=== PATIENT | male | born 1950 | race Caucasian/White ===

== ENCOUNTER 2018-04-13 06:00 | Day surgery (SDC) | payer BC ==
[~2018-04-13 06:00] MED LIST: Lactated Ringers 1,000 ML IV SCH
[2018-04-13] MEDS ORDERED: DIPRIVAN 200 MG/20 ML IV ONE (06:01)
[2018-04-13] MEDS ORDERED: SUBLIMAZE 100 MCG/2 ML IV ONE (06:01)
[2018-04-13] MEDS ORDERED: Versed 2 MG/2 ML Injection IV ONE (06:01)
[2018-04-13] MEDS ORDERED: Lactated Ringers 1,000 ML IV ONE (06:58)
--- NOTE | 2018-04-13 08:54 | OP ---
SURGERY DATE/TIME: 04/13/201825 PREOPERATIVE DIAGNOSIS: Screening exam. POSTOPERATIVE DIAGNOSIS: Normal colon. PROCEDURE: Colonoscopy. SURGEON: Dr. Denney. ANESTHESIA: MAC. Medications given by anesthesia department. HISTORY: The patient is a 67 year-old white male patient presenting for his first screening colonoscopy. He was appraised of the risks of the procedure including the risk of perforation, phlebitis, untoward reaction to medication, bleeding and missed lesions. The patient verbalized his understanding and desired to have the procedure performed. DESCRIPTION OF PROCEDURE: The patient was given the medications by the anesthesia department. He had continuous pulse oximetry, ECG monitoring, intermittent blood pressure monitoring and tidal CO2 monitoring during the examination. He was placed in the left lateral decubitus position. A digital rectal examination was performed and revealed normal anal sphincter tone, no masses, no hemorrhoids and normal prostate. The flexible Olympus pediatric colonoscope was used to intubate the rectum. A view of the colon was developed sequentially to the cecum. Upon insertion and withdrawal, including a retroflex view in the rectum, no mucosal lesions were encountered. The scope was removed from the patient who tolerated the procedure well and was sent back to OP recovery in good condition. The prep was noted to be fair to good.
[2018-04-13 09:55] VITALS: BP 115/78; PULSE 65; O2SAT 98
== END 2018-04-13 09:55 | disposition home or self-care (01) ==
LOC: SDC 06:00 → EDSTATUS 11:59
PROVIDERS: ATTEND Family Medicine
DX: Z12.11 Encounter for screening for malignant neoplasm of colon (principal); E11.9 Type 2 diabetes mellitus without complications
CPT/HCPCS: 82962; J2250; J2704; J3010